=== PATIENT | female | born 1950 ===

== ENCOUNTER 2018-11-07 15:57 | Inpatient (IN) | payer MEDICARE, OTHER ==
[2018-11-07] MEDS ORDERED: Sodium Chloride 0.9% 1,000 ML IV SCH (16:15)
--- NOTE | 2018-11-07 16:23 | C.PDOC ---
History Of Present Illness 68 year old female presents to ED complaining of generalized weakness and fever since this morning, associated with vomiting and nausea. Otherwise patient denies any cough or nasal congestion. Time Seen by Provider: 11/07/18 16:06 Chief Complaint (Nursing): Fever History Per: Patient History/Exam Limitations: no limitations Onset/Duration Of Symptoms: Hrs Current Symptoms Are (Timing): Still Present Past Medical History Reviewed: Historical Data, Nursing Documentation, Vital Signs Vital Signs: Last Vital Signs Temp 102.1 F H 11/07/18 16:05 Pulse 120 H 11/07/18 16:05 Resp 33 H 11/07/18 16:05 BP Pulse Ox 100 11/07/18 16:05 - Medical History PMH: Asthma, HTN, Rheumatoid Arthritis Surgical History: No Surg Hx Family History: States: No Known Family Hx - Social History Hx Tobacco Use: No Hx Alcohol Use: No Hx Substance Use: No - Immunization History Hx Tetanus Toxoid Vaccination: No Hx Influenza Vaccination: Yes (2012) Review Of Systems Except As Marked, All Systems Reviewed And Found Negative. Constitutional: Positive for: Fever, Weakness ENT: Negative for: Nose Congestion Respiratory: Negative for: Cough Gastrointestinal: Positive for: Nausea, Vomiting Physical Exam - Physical Exam Appears: Non-toxic, In Acute Distress (moderate) Skin: Warm, Dry Head: Atraumatic, Normacephalic Eye(s): bilateral: Normal Inspection, PERRL, EOMI Oral Mucosa: Dry Neck: Supple Chest: Symmetrical Cardiovascular: Rhythm Regular (tachycardic), No Murmur Respiratory: Normal Breath Sounds, No Rales, No Rhonchi, No Wheezing Gastrointestinal/Abdominal: Tenderness (to left flank), No Guarding, No Rebound Extremity: Bilateral: Atraumatic, Normal Color And Temperature, Normal ROM Neurological/Psych: Oriented x3, Normal Speech ED Course And Treatment - Laboratory Results Result Diagrams: 11/07/18 17:06 11/07/18 17:06 ECG: Interpreted By Me, Viewed By Me ECG Rhythm: Sinus Tachycardia Interpretation Of ECG: LVH. QT normal. Rate From EC O2 Sat by Pulse Oximetry: 100 (RA) Pulse Ox Interpretation: Normal - Radiology CXR: Interpreted by Me, Viewed By Me CXR Interpretation: Yes: Heart Size (borderline enlargement), Other (Questionable small left pleural effusion) - Other Rad Chest X-Ray X-Ray: Read By Radiologist Interpretation: FINDINGS: LUNGS: No active pulmonary disease. PLEURA: No significant pleural effusion identified, no pneumothorax apparent. CARDIOVASCULAR: No aortic atherosclerotic calcification present. Normal cardiac size. No pulmonary vascular congestion. OSSEOUS STRUCTURES: Bilateral chronic rotator cuff insufficiency with superior subluxation of the humeral head. VISUALIZED UPPER ABDOMEN: Normal. OTHER FINDINGS: None. IMPRESSION: No active disease. Medical Decision Making Medical Decision Making: Plan: --EKG --VBG --CT Abd/Pel --Bloodwork --Chest x-ray --Urinalysis --Lactated Ringers 2L --IV fluids 1L --Tylenol 650 mg PO Disposition Discussed With Dr.: Noni Ayala Doctor Will See Patient In The: Hospital - Disposition Disposition: HOSPITALIZED Disposition Time: 18:35 Condition: GUARDED Forms: [facility] (Honduran) - Clinical Impression Clinical Impression: Sepsis - Scribe Statement The provider has reviewed the documentation as recorded by the Dimitriibdori Vargas Provider Attestation: All medical record entries made by the Marimar were at my direction and personally dictated by me. I have reviewed the chart and agree that the record accurately reflects my personal performance of the history, physical exam, medical decision making, and the department course for this patient. I have also personally directed, reviewed, and agree with the discharge instructions and disposition.
[2018-11-07 17:13] LABS: BASO % 0.1 % (0.0-2.0); HEMOGLOBIN 11.8 g/dL (11.0-16.0); LYMPH # 0.2 K/uL (1.0-4.3); LYMPH % 1.9 % (20.0-40.0); MEAN CELL VOLUME 76.8 fL (81.0-99.0); MEAN CORPUSCULAR HGB CONC 32.5 g/dL (33.0-37.0); MONO # 0.3 K/uL (0.0-0.8); MONO % 2.6 % (0.0-10.0); NEUT # 11.9 K/uL (1.8-7.0); NEUT % 95.4 % (50.0-75.0); PLATELET COUNT 255 K/uL (130-400); RBC 4.71 Mil/uL (3.80-5.20); RED CELL DISTRIBUTION WIDTH 16.7 % (11.5-14.5); WHITE BLOOD COUNT 12.5 K/uL (4.8-10.8)
[2018-11-07] MEDS ORDERED: Lactated Ringer's 2,000 ML ONE (17:16)
[2018-11-07 17:17] LABS: VENOUS BLOOD GAS BASE EXCESS 0.3 mmol/L (0.0-2.0); VENOUS BLOOD GAS PCO2 33 mmHg (40-60); VENOUS BLOOD GAS PO2 32 mm/Hg (30-55); VENOUS BLOOD PH 7.46 (7.32-7.43)
[2018-11-07 17:17] LABS: INR 1.2; PROTHROMBIN TIME 13.5 SECONDS (9.7-12.2)
[2018-11-07 17:26] LABS: ALB/GLOB RATIO 0.8 (1.0-2.1); ALBUMIN 3.8 g/dL (3.5-5.0); ALT/SGPT < 6 U/L (9-52); AST/SGOT 43 U/L (14-36); BLOOD UREA NITROGEN 11 mg/dL (7-17); GFR NON-AFRICAN AMERICAN > 60
--- NOTE | 2018-11-07 17:27 | RAD ---
Date of service: 11/07/2018 HISTORY: Sepsis Patient COMPARISON: 01/08/2018 FINDINGS: LUNGS: No active pulmonary disease. PLEURA: No significant pleural effusion identified, no pneumothorax apparent. CARDIOVASCULAR: No aortic atherosclerotic calcification present. Normal cardiac size. No pulmonary vascular congestion. OSSEOUS STRUCTURES: Bilateral chronic rotator cuff insufficiency with superior subluxation of the humeral head. VISUALIZED UPPER ABDOMEN: Normal. OTHER FINDINGS: None. IMPRESSION: No active disease.
[2018-11-07 18:03] LABS: SQUAMOUS EPITHIAL 9 /hpf (0-5); URINE BACTERIA MANY (<OCC); URINE BILIRUBIN NEGATIVE (NEGATIVE); URINE BLOOD NEGATIVE (NEGATIVE); URINE CLARITY Hazy (Clear); URINE COLOR Amber (YELLOW); URINE GLUCOSE (UA) NORMAL (Normal); URINE LEUKOCYTE ESTERASE NEG Leu/uL (Negative); URINE PROTEIN 1+ mg/dL (NEGATIVE); URINE UROBILINOGEN NORMAL mg/dL (0.2-1.0)
[2018-11-07 18:13] LABS: LYMPHOCYTE 3 % (20-40); MONOCYTE 2 % (0-10); NEUTROPHIL 95 % (50-75); PLATELET ESTIMATE NORMAL (NORMAL); TOTAL CELLS COUNTED 100
[2018-11-07] MEDS ORDERED: Piperacillin/Tazobact 3.375 gm 100 ML IVPB ONE (18:15)
[2018-11-07] MEDS: Piperacillin/Tazobact 3.375 GM in Sodium Chloride 100 ML IVPB SCH (18:26)
[2018-11-07] MEDS ORDERED: Magnesium Sulfate 1 gm in D5W 1 GM/100 ML BAG IVPB ONE (19:57)
[2018-11-07 20:01] LABS: VENOUS BLOOD GAS BASE EXCESS 0.4 mmol/L (0.0-2.0); VENOUS BLOOD GAS PCO2 30 mmHg (40-60); VENOUS BLOOD GAS PO2 55 mm/Hg (30-55); VENOUS BLOOD PH 7.49 (7.32-7.43)
[2018-11-07] MEDS ORDERED: Albuterol-Ipratrop 3 mg / 0.5 (3 ml) UD INH PRN (22:11)
--- NOTE | 2018-11-07 22:14 | CP.PCM.HP ---
<Hamida Dietz - Last Filed: 11/08/18 06:29> History of Present Illness - History of Present Illness History of Present Illness: CC diffuse body aches HPI: Patient is a 68 year old female with history of rheumatoid arthritis, HTN, RA, gastritis who presents for diffuse body aches. She states her symptoms started with abdominal pain that she describes as severe this morning associated with 3 episodes of vomiting, containing food contents. She denies any blood or dark material in her vomitus. She states she then called her son who brought her seltzer water for her abdominal discomfort which helped with her abdominal pain. She states she has had normal stools, brown and soft, denies blood or tarry stools. She states she has felt warm and has had chills all over all day today. She states her entire body hurts, including her head, and her left shoulder. She states she has not been able to eat anything today because of her vomiting. She denies falling at home, she denies dizziness, chest pain, shortness of breath, palpitations. She states she does not currently have any abdominal pain or back pain. She states she has pain all over her leg and arms. She denies burning with urination or frequency, or bad odor. PMD: Dr. Rodriguez, prior PMD Dr. Elias retired Rheum: Dr. Waters PMH: rheumatoid arthritis, HTN, gastritis, asthma (has had multiple hospitalization, never intubated) PSH: bilateral knee replacement, C section, kidney stones, nodule removal Home meds: Amlodipine 10mg, Vasotec 10mg, Methotrexate 6 tabs weekly, metoprolol 50mg daily, tramadol, vicodin Allergies: NKDA Social hx: Quit smoking 25 years ago, uses to smoke 3-4 cigarettes daily, denies history of alcohol or drug use. lives with son Family hx: Sister HIV, history of cancer, alcohol and drug use. Health care proxy Waldo Reese [phone] (son) Present on Admission - Present on Admission Any Indicators Present on Admission: No Review of Systems - Constitutional Constitutional: Chills, Fever, Headache - EENT Eyes: absent: Change in Vision Nose/Mouth/Throat: absent: Nasal Congestion, Sore Throat - Cardiovascular Cardiovascular: absent: Chest Pain, Dyspnea, Palpitations - Respiratory Respiratory: absent: Cough, Chest Congestion - Gastrointestinal Gastrointestinal: Abdominal Pain, Nausea, Vomiting. absent: Diarrhea - Genitourinary Genitourinary: absent: Change in Urinary Stream, Difficulty Urinating, Dysuria, Flank Pain - Musculoskeletal Musculoskeletal: Deformity (joint deformities secondary to RA). absent: Back Pain - Neurological Neurological: absent: Confusion, Convulsions, Disequilibrium, Dizziness, Syncope - Psychiatric Psychiatric: absent: Anxiety, Depression Past Patient History - Infectious Disease Hx of Infectious Diseases: None - Past Social History Smoking Status: Never Smoked - CARDIAC Hx Hypertension: Yes - PULMONARY Hx Asthma: Yes - MUSCULOSKELETAL/RHEUMATOLOGICAL Hx Rheumatoid Arthritis: Yes - PSYCHIATRIC Hx Substance Use: No - SURGICAL HISTORY Hx Hysterectomy: Yes Meds Allergies/Adverse Reactions: Allergies Allergy/AdvReac Type Severity Reaction Status Date / Time No Known Allergies Allergy Verified 11/07/18 16:11 Physical Exam - Constitutional Additional comments: Patient is moaning in pain but awake, alert and oriented x3 - Head Exam Head Exam: ATRAUMATIC, NORMOCEPHALIC - Eye Exam Eye Exam: EOMI, PERRL. absent: Conjunctival injection, Periorbital swelling, Scleral icterus Pupil Exam: NORMAL ACCOMODATION - ENT Exam ENT Exam: Mucous Membranes Dry, Normal Oropharynx - Neck Exam Neck exam: Positive for: Full Rom. Negative for: Lymphadenopathy, Thyromegaly - Respiratory Exam Respiratory Exam: Decreased Breath Sounds. absent: Rales, Rhonchi, Wheezes, Respiratory Distress, Stridor - Cardiovascular Exam Cardiovascular Exam: Tachycardia, +S1, +S2. absent: Gallop, Rubs, Systolic Murmur - GI/Abdominal Exam GI & Abdominal Exam: Normal Bowel Sounds, Soft. absent: Distended, Firm, Guarding, Hernia, Rigid, Tenderness - Extremities Exam Extremities exam: Positive for: normal capillary refill, pedal pulses present. Negative for: calf tenderness, pedal edema Additional comments: Marked deviation of fingers and toes secondary to rheumatoid arthritis Nodules present on fingers Vertical scars on knees bilaterally - Back Exam Back exam: CVA tenderness (R). absent: CVA tenderness (L), rash noted - Neurological Exam Neurological exam: Alert, CN II-XII Intact, Oriented x3 - Psychiatric Exam Psychiatric exam: Normal Affect, Normal Mood - Skin Skin Exam: Dry, Intact, Warm Results - Vital Signs Recent Vital Signs: Last Vital Signs Temp 101.1 F H 11/07/18 20:03 Pulse 112 H 11/07/18 20:03 Resp 33 H 11/07/18 16:05 BP 132/55 L 11/07/18 20:03 Pulse Ox 98 11/07/18 20:03 - Labs Result Diagrams: 11/07/18 17:06 11/07/18 17:06 Labs: Laboratory Results - last 24 hr 11/07/18 11/07/18 11/07/18 16:38 17:06 17:06 WBC 12.5 H D RBC 4.71 Hgb 11.8 Hct 36.2 MCV 76.8 L MCH 25.0 L MCHC 32.5 L RDW 16.7 H Plt Count 255 MPV 8.0 Neut % (Auto) 95.4 H Lymph % (Auto) 1.9 L [place] % (Auto) 2.6 Eos % (Auto) 0.0 Baso % (Auto) 0.1 Neut # (Auto) 11.9 H Lymph # (Auto) 0.2 L [place] # (Auto) 0.3 Eos # (Auto) 0.0 Baso # (Auto) 0.0 Neutrophils % (Manual) 95 H Lymphocytes % (Manual) 3 L Monocytes % (Manual) 2 Platelet Estimate Normal PT 13.5 H INR 1.2 APTT 31 pO2 VBG pH VBG pCO2 VBG HCO3 VBG Total CO2 VBG O2 Sat (Calc) VBG Base Excess VBG Potassium Glucose Lactate Sodium Potassium Chloride Carbon Dioxide Anion Gap BUN Creatinine Est GFR ( Amer) Est GFR (Non-Af Amer) Random Glucose Calcium Phosphorus Magnesium Total Bilirubin AST ALT Alkaline Phosphatase Troponin I Total Protein Albumin Globulin Albumin/Globulin Ratio Venous Blood Potassium Urine Color Urine Clarity Urine pH Ur Specific [place] Urine Protein Urine Glucose (UA) Urine Ketones Urine Blood Urine Nitrate Urine Bilirubin Urine Urobilinogen Ur Leukocyte Esterase Urine WBC (Auto) Urine RBC (Auto) Ur Squamous Epith Cells Urine Bacteria Influenza Typ A,B (EIA) Negative for flu a/b 11/07/18 11/07/18 11/07/18 17:06 17:11 17:49 WBC RBC Hgb Hct MCV MCH MCHC RDW Plt Count MPV Neut % (Auto) Lymph % (Auto) [place] % (Auto) Eos % (Auto) Baso % (Auto) Neut # (Auto) Lymph # (Auto) [place] # (Auto) Eos # (Auto) Baso # (Auto) Neutrophils % (Manual) Lymphocytes % (Manual) Monocytes % (Manual) Platelet Estimate PT INR APTT pO2 32 VBG pH 7.46 H VBG pCO2 33 L VBG HCO3 24.3 VBG Total CO2 24.5 VBG O2 Sat (Calc) 68.3 H VBG Base Excess 0.3 VBG Potassium 5.1 Glucose 113 H Lactate 3.7 H Sodium 134 133.0 Potassium 5.3 H Chloride 103 104.0 Carbon Dioxide 21 L Anion Gap 16 BUN 11 Creatinine 0.6 L Est GFR ( Amer) > 60 Est GFR (Non-Af Amer) > 60 Random Glucose 119 H Calcium 9.0 Phosphorus 1.8 L Magnesium 1.4 L Total Bilirubin 1.5 H AST 43 H ALT < 6 L D Alkaline Phosphatase 74 Troponin I 0.0340 Total Protein 8.3 Albumin 3.8 Globulin 4.5 H Albumin/Globulin Ratio 0.8 L Venous Blood Potassium 5.1 Urine Color [place] Urine Clarity Hazy Urine pH 6.0 Ur Specific [place] 1.020 Urine Protein 1+ H Urine Glucose (UA) Normal Urine Ketones Negative Urine Blood Negative Urine Nitrate Negative Urine Bilirubin Negative Urine Urobilinogen Normal Ur Leukocyte Esterase Neg Urine WBC (Auto) 30 H Urine RBC (Auto) 6 H Ur Squamous Epith Cells 9 H Urine Bacteria Many H Influenza Typ A,B (EIA) 11/07/18 19:59 WBC RBC Hgb Hct MCV MCH MCHC RDW Plt Count MPV Neut % (Auto) Lymph % (Auto) [place] % (Auto) Eos % (Auto) Baso % (Auto) Neut # (Auto) Lymph # (Auto) [place] # (Auto) Eos # (Auto) Baso # (Auto) Neutrophils % (Manual) Lymphocytes % (Manual) Monocytes % (Manual) Platelet Estimate PT INR APTT pO2 55 VBG pH 7.49 H VBG pCO2 30 L VBG HCO3 25.1 VBG Total CO2 23.8 VBG O2 Sat (Calc) 93.9 H VBG Base Excess 0.4 VBG Potassium 3.4 L Glucose 112 H Lactate 1.9 Sodium 135.0 Potassium Chloride 107.0 Carbon Dioxide Anion Gap BUN Creatinine Est GFR ( Amer) Est GFR (Non-Af Amer) Random Glucose Calcium Phosphorus Magnesium Total Bilirubin AST ALT Alkaline Phosphatase Troponin I Total Protein Albumin Globulin Albumin/Globulin Ratio Venous Blood Potassium 3.4 L Urine Color Urine Clarity Urine pH Ur Specific [place] Urine Protein Urine Glucose (UA) Urine Ketones Urine Blood Urine Nitrate Urine Bilirubin Urine Urobilinogen Ur Leukocyte Esterase Urine WBC (Auto) Urine RBC (Auto) Ur Squamous Epith Cells Urine Bacteria Influenza Typ A,B (EIA) Assessment & Plan - Assessment and Plan (Free Text) Assessment: 68 year old female with history of rheumatoid arthritis, HTN, gastritis and asthma who presents for diffuse body aches, fever. Code sepsis called. Plan: Code sepsis UTI Febrile to 102.1, HR 120 Initial lactate 3.7, repeat lactate 1.9, 3rd lactate 0.9 White count 12.5 with left shift Tylenol 650mg Q6 for fever, pain NS IV fluids at 100cc/hr Zosyn 3.375g IV Q6 UA: many bacteria. 1+ protein Flu negative f/u procal f/u blood cultures, urine cultures CXR: no acute disease Abd/pelvis CT without contrast: gallstone, small 3-4mm non obstructing left renal stone. 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 History of Rheumatoid arthritis Takes Enbrel weekly, last took on 11/06/18 methotrexate dose unconfirmed, start after confirm with pharmacy. Needs to confirm pain meds with pharmacy - Tramadol, Vicodin History of Asthma As per patient has had multiple hospitalization, never intubated Duonebs Q6 PRN Currently oxygenating well on RA Only uses albuterol as needed at home, last use 5 months ago as per patient Hypokalemia KCL 40meq IV x1 Hypomagnesemia Mag sulfate x1 given PPX: SCDs, Lovenox Pepcid Case discussed with Dr. Sol Dietz, PGY1 <Tawanda Horton - Last Filed: 11/08/18 06:54> Results - Vital Signs Recent Vital Signs: Last Vital Signs Temp 98.5 F 11/08/18 00:35 Pulse 90 11/08/18 00:35 Resp 20 11/08/18 00:35 BP 130/80 11/08/18 00:35 Pulse Ox 99 11/08/18 00:35 - Labs Result Diagrams: 11/07/18 17:06 11/07/18 17:06 Labs: Laboratory Results - last 24 hr 11/07/18 11/07/18 11/07/18 16:38 17:06 17:06 WBC 12.5 H D RBC 4.71 Hgb 11.8 Hct 36.2 MCV 76.8 L MCH 25.0 L MCHC 32.5 L RDW 16.7 H Plt Count 255 MPV 8.0 Neut % (Auto) 95.4 H Lymph % (Auto) 1.9 L [place] % (Auto) 2.6 Eos % (Auto) 0.0 Baso % (Auto) 0.1 Neut # (Auto) 11.9 H Lymph # (Auto) 0.2 L [place] # (Auto) 0.3 Eos # (Auto) 0.0 Baso # (Auto) 0.0 Neutrophils % (Manual) 95 H Lymphocytes % (Manual) 3 L Monocytes % (Manual) 2 Platelet Estimate Normal PT 13.5 H INR 1.2 APTT 31 pO2 VBG pH VBG pCO2 VBG HCO3 VBG Total CO2 VBG O2 Sat (Calc) VBG Base Excess VBG Potassium Glucose Lactate Sodium Potassium Chloride Carbon Dioxide Anion Gap BUN Creatinine Est GFR ( Amer) Est GFR (Non-Af Amer) POC Glucose (mg/dL) Random Glucose Calcium Phosphorus Magnesium Total Bilirubin AST ALT Alkaline Phosphatase Troponin I Total Protein Albumin Globulin Albumin/Globulin Ratio Venous Blood Potassium Urine Color Urine Clarity Urine pH Ur Specific [place] Urine Protein Urine Glucose (UA) Urine Ketones Urine Blood Urine Nitrate Urine Bilirubin Urine Urobilinogen Ur Leukocyte Esterase Urine WBC (Auto) Urine RBC (Auto) Ur Squamous Epith Cells Urine Bacteria Influenza Typ A,B (EIA) Negative for flu a/b 11/07/18 11/07/18 11/07/18 17:06 17:11 17:49 WBC RBC Hgb Hct MCV MCH MCHC RDW Plt Count MPV Neut % (Auto) Lymph % (Auto) [place] % (Auto) Eos % (Auto) Baso % (Auto) Neut # (Auto) Lymph # (Auto) [place] # (Auto) Eos # (Auto) Baso # (Auto) Neutrophils % (Manual) Lymphocytes % (Manual) Monocytes % (Manual) Platelet Estimate PT INR APTT pO2 32 VBG pH 7.46 H VBG pCO2 33 L VBG HCO3 24.3 VBG Total CO2 24.5 VBG O2 Sat (Calc) 68.3 H VBG Base Excess 0.3 VBG Potassium 5.1 Glucose 113 H Lactate 3.7 H Sodium 134 133.0 Potassium 5.3 H Chloride 103 104.0 Carbon Dioxide 21 L Anion Gap 16 BUN 11 Creatinine 0.6 L Est GFR ( Amer) > 60 Est GFR (Non-Af Amer) > 60 POC Glucose (mg/dL) Random Glucose 119 H Calcium 9.0 Phosphorus 1.8 L Magnesium 1.4 L Total Bilirubin 1.5 H AST 43 H ALT < 6 L D Alkaline Phosphatase 74 Troponin I 0.0340 Total Protein 8.3 Albumin 3.8 Globulin 4.5 H Albumin/Globulin Ratio 0.8 L Venous Blood Potassium 5.1 Urine Color [place] Urine Clarity Hazy Urine pH 6.0 Ur Specific [place] 1.020 Urine Protein 1+ H Urine Glucose (UA) Normal Urine Ketones Negative Urine Blood Negative Urine Nitrate Negative Urine Bilirubin Negative Urine Urobilinogen Normal Ur Leukocyte Esterase Neg Urine WBC (Auto) 30 H Urine RBC (Auto) 6 H Ur Squamous Epith Cells 9 H Urine Bacteria Many H Influenza Typ A,B (EIA) 11/07/18 11/07/18 11/08/18 19:59 22:48 06:17 WBC RBC Hgb Hct MCV MCH MCHC RDW Plt Count MPV Neut % (Auto) Lymph % (Auto) [place] % (Auto) Eos % (Auto) Baso % (Auto) Neut # (Auto) Lymph # (Auto) [place] # (Auto) Eos # (Auto) Baso # (Auto) Neutrophils % (Manual) Lymphocytes % (Manual) Monocytes % (Manual) Platelet Estimate PT INR APTT pO2 55 58 H VBG pH 7.49 H 7.46 H VBG pCO2 30 L 44 VBG HCO3 25.1 29.9 VBG Total CO2 23.8 32.7 H VBG O2 Sat (Calc) 93.9 H 95.1 H VBG Base Excess 0.4 6.6 H VBG Potassium 3.4 L 4.0 Glucose 112 H 113 H Lactate 1.9 0.9 Sodium 135.0 149.0 H Potassium Chloride 107.0 116.0 H Carbon Dioxide Anion Gap BUN Creatinine Est GFR ( Amer) Est GFR (Non-Af Amer) POC Glucose (mg/dL) 106 Random Glucose Calcium Phosphorus Magnesium Total Bilirubin AST ALT Alkaline Phosphatase Troponin I Total Protein Albumin Globulin Albumin/Globulin Ratio Venous Blood Potassium 3.4 L 4.0 Urine Color Urine Clarity Urine pH Ur Specific [place] Urine Protein Urine Glucose (UA) Urine Ketones Urine Blood Urine Nitrate Urine Bilirubin Urine Urobilinogen Ur Leukocyte Esterase Urine WBC (Auto) Urine RBC (Auto) Ur Squamous Epith Cells Urine Bacteria Influenza Typ A,B (EIA) Assessment & Plan - Date & Time Date: 11/08/18 (I have seen and examined the patient. I agree with the findings and plan of care as documented by Dr. Dietz. Patient with sepsis likely with UTI has source. Zosyn for now. Lactate elevated. Hemodynamically stable. Will monitor her closely. Check blood and urine cultures. History of rheumato id arthritis. On Enbrel. Consider discontinuing if sepsis worsens. History of hypertension. Continue home meds. Monitor for acute changes.) Time: 06:52 Attending/Attestation - Attestation I have personally seen and examined this patient.: Yes I have fully participated in the care of the patient.: Yes I have reviewed all pertinent clinical information: Yes
[2018-11-07] MEDS: Sodium Chloride 0.9% 1,000 ML IV SCH (22:48)
[2018-11-07 22:52] LABS: VENOUS BLOOD GAS BASE EXCESS 6.6 mmol/L (0.0-2.0); VENOUS BLOOD GAS PCO2 44 mmHg (40-60); VENOUS BLOOD GAS PO2 58 mm/Hg (30-55); VENOUS BLOOD PH 7.46 (7.32-7.43)
[2018-11-07] MEDS ORDERED: Potassium Chloride 20 mEq ER Tab PO ONE (23:00)
[2018-11-08] MEDS ORDERED: Hydrocodone/Acetaminophen 5 mg /300 mg Tab PO ONE (00:45)
[2018-11-08] MEDS: Piperacillin/Tazobact 3.375 GM in Sodium Chloride 100 ML IVPB SCH ×4 (01:00→17:03)
--- NOTE | 2018-11-08 07:09 | CP.PCM.PN ---
Subjective - Date & Time of Evaluation Date of Evaluation: 11/08/18 Time of Evaluation: 07:08 - Subjective Subjective: Progress note for Dr Ayala service Patient is seen and examined at bedside. Patient complaining of pain in both his lower extremities. Patient states getting cramps from her left leg and keeps leg hanging outside the bed. Patient reports pain in the back of her neck radiating to face. Patient denies abdominal pain, except for minor gas discomfort. Patient denies fever, chills, chest pain, shortness of breath, n/v/d/c or urinary s ymptoms. Objective - Vital Signs/Intake and Output Vital Signs (last 24 hours): Temp Pulse Resp BP Pulse Ox 98.5 F 90 20 130/80 99 11/08/18 00:35 11/08/18 00:35 11/08/18 00:35 11/08/18 00:35 11/08/18 00:35 Intake and Output: 11/08/18 11/08/18 06:59 18:59 Intake Total 1000 Balance 1000 - Medications Medications: Current Medications Acetaminophen (Tylenol 325mg Tab) 650 mg PO Q6 PRN PRN Reason: Fever >100.4 F Acetaminophen (Tylenol 325mg Tab) 650 mg PO Q6 PRN PRN Reason: Pain, moderate (4-7) Albuterol/Ipratropium (Duoneb 3 Mg/0.5 Mg (3 Ml) Ud) 3 ml INH RQ6 PRN PRN Reason: Shortness of Breath Amlodipine Besylate (Norvasc) 10 mg PO DAILY [facility] Enalapril Maleate (Vasotec) 10 mg PO DAILY [facility] Enoxaparin Sodium (Lovenox) 40 mg SC DAILY [facility] Famotidine (Pepcid) 20 mg PO DAILY [facility] Piperacillin Sod/Tazobactam (Sod 3.375 gm/ Sodium Chloride) 100 mls @ 200 mls/hr IVPB Q6H [facility]; Protocol Last Admin: 11/08/18 05:55 Dose: 200 mls/hr Sodium Chloride (Sodium Chloride 0.9%) 1,000 mls @ 100 mls/hr IV .Q10H [facility] Last Admin: 11/07/18 22:48 Dose: 100 mls/hr - Labs Labs: 11/07/18 17:06 11/07/18 17:06 PT 13.5 SECONDS (9.7-12.2) H 11/07/18 17:06 INR 1.2 11/07/18 17:06 APTT 31 SECONDS (21-34) 11/07/18 17:06 - Constitutional Appears: Non-toxic, No Acute Distress - Head Exam Head Exam: ATRAUMATIC, NORMAL INSPECTION, NORMOCEPHALIC - Eye Exam Eye Exam: EOMI, Normal appearance - ENT Exam ENT Exam: Mucous Membranes Moist, Normal Exam - Neck Exam Neck Exam: Full ROM, Normal Inspection - Respiratory Exam Respiratory Exam: Clear to Ausculation Bilateral, NORMAL BREATHING PATTERN. absent: Rales, Rhonchi, Wheezes - Cardiovascular Exam Cardiovascular Exam: REGULAR RHYTHM, +S1, +S2. absent: Tachycardia - GI/Abdominal Exam GI & Abdominal Exam: Soft, Normal Bowel Sounds. absent: Distended, Tenderness, Rebound - Extremities Exam Additional comments: bilateral toes and fingers in hands noted to be deviated - Back Exam Back Exam: NORMAL INSPECTION - Neurological Exam Neurological Exam: Alert, Awake, Oriented x3 - Psychiatric Exam Psychiatric exam: Normal Affect, Normal Mood - Skin Skin Exam: Dry, Intact, Normal Color, Warm Assessment and Plan - Assessment and Plan (Free Text) Plan: Code sepsis UTI vs bacteremia vs cellulitis (from enbrel injections) abdominal pain resolved at this time Febrile to 102.1, HR 120 -- Now 98.4, HR 96 Trending down lactate - Initial lactate 3.7, repeat lactate 1.9, 3rd lactate 0.9 White count 12.5 with left shift - 11/08 WBC 17.0 UA: many bacteria. 1+ protein Flu negative f/u procal f/u blood cultures, urine cultures CXR: no acute disease Abd/pelvis CT without contrast: gallstone, small 3-4mm non obstructing left renal stone. atherosclerotic changes with mild aneurysmal dilatation of mid abdominal aorta (2.5cm) Meds: Zosyn 3.375g IV Q6 Vanco 1gm IVPB Q12 Tamiflu 1 cap BID Tylenol 650mg Q6 for fever, pain NS IV fluids at 100cc/hr History of HTN cont Norvasc 10mg PO cont Vasotec 10mg PO cont Metroprolol 50mg PO BID monitor BP. History of Rheumatoid arthritis Takes Enbrel weekly, last took on 11/06/18 methotrexate 2.5mg x 6 tablets once a week - hold Folic acid 1mg once a day Iron panel - Iron, retic, ferritin, TIBC, iron sat - f/u B12, folate - f/u As per pharmacy, patient does not take any other medication History of Asthma As per patient has had multiple hospitalization, never intubated Duonebs Q6 PRN Currently oxygenating well on RA Only uses albuterol as needed at home, last use 5 months ago as per patient Hyperglycemia - 143 on POC glucose this am - check HbA1C - reactive, due to infection Hypokalemia, resolved - On VB.4 - K-dur 40 meq given on admission - 11/08: 4.2 Hypomagnesemia, resolved On admission: Mg 1.4 Mag sulfate x1 given 11/08: 1.9 PPX: SCDs, Lovenox Pepcid HHD Plan discussed with Dr Jamie Hayden, PGY-1
[2018-11-08 08:33] LABS: BASO % 0.2 % (0.0-2.0); EOS % 0.1 % (0.0-4.0); LYMPH # 0.6 K/uL (1.0-4.3); LYMPH % 3.7 % (20.0-40.0); MEAN CELL VOLUME 76.8 fL (81.0-99.0); MEAN CORPUSCULAR HEMOGLOBIN 24.3 pg (27.0-31.0); MEAN CORPUSCULAR HGB CONC 31.6 g/dL (33.0-37.0); MEAN PLATELET VOLUME 7.9 fL (7.2-11.7); MONO # 0.8 K/uL (0.0-0.8); MONO % 4.4 % (0.0-10.0); NEUT # 15.6 K/uL (1.8-7.0); NEUT % 91.6 % (50.0-75.0); PLATELET COUNT 228 K/uL (130-400); RBC 4.02 Mil/uL (3.80-5.20)
[2018-11-08 08:41] LABS: ALB/GLOB RATIO 0.8 (1.0-2.1); ALBUMIN 2.8 g/dL (3.5-5.0); ALT/SGPT 14 U/L (9-52); AST/SGOT 20 U/L (14-36); BLOOD UREA NITROGEN 15 mg/dL (7-17); CALCIUM 8.2 mg/dl (8.6-10.4); GFR NON-AFRICAN AMERICAN > 60
[2018-11-08 08:51] LABS: HEMOGLOBIN 9.8 g/dL (11.0-16.0)
--- NOTE | 2018-11-08 08:52 | PCM.SEPTIC ---
Sepsis Progress Note - Reassessment Type Date of Evaluation: 11/07/18 Time of Evaluation: 23:45 Reassessment Type: Non-invasive reassessment - Non Invasive Reassessment Were the most recent vital sign reviewed: Yes Vital Sign (Latest): Temp Pulse Resp BP Pulse Ox 98.4 F 92 H 20 159/83 H 97 11/08/18 07:33 11/08/18 08:12 11/08/18 07:33 11/08/18 07:33 11/08/18 07:33 Cardiovascular: Yes: Tachycardia Respiratory: Yes: Decreased Breath Sounds, Other (Not in respiratory distress, saturating well on RA) Capillary Refill: Normal (Less than 2 sec) Pulses: Normal Radial, Normal Dorsalis Pedis, Normal Posterior Tibialis Skin: Warm, Dry - Invasive Reassessment (complete 2 of 4) Was a Central Venous Pressure Measurement obtained within 6 Hours after the presentation of septic shock: No Was a central venous oxygen measurement obtained within 6 hours after the presentation of septic shock: No Was a bedside cardiovascular ultrasound performed within 6 hours after the presentation of septic shock: No Was a passive leg raise performed or was a fluid challenge performed within 6 hrs of the initial fluid bolus: No Passive Leg Raise Result: Not Applicable
--- NOTE | 2018-11-08 09:40 | CT ---
Date of service: 11/07/2018 PROCEDURE: CT Abdomen and Pelvis without intravenous contrast HISTORY: L. flank pain COMPARISON: None. TECHNIQUE: Technique. Contrast dose: Radiation dose: Total exam DLP = 1002.08 mGy-cm. This CT exam was performed using one or more of the following dose reduction techniques: Automated exposure control, adjustment of the mA and/or kV according to patient size, and/or use of iterative reconstruction technique. FINDINGS: LOWER THORAX: Unremarkable. LIVER: Unremarkable. No gross lesion or ductal dilatation. GALLBLADDER AND BILE DUCTS: Cholelithiasis. PANCREAS: Unremarkable. No gross lesion or ductal dilatation. SPLEEN: Unremarkable. ADRENALS: Unremarkable. No mass. KIDNEYS AND URETERS: Punctate 3 millimeter calculus in the left mid kidney. No hydronephrosis. No solid mass. VASCULATURE: Unremarkable. No aortic aneurysm. Aortic calcifications. BOWEL: Unremarkable. No obstruction. No gross mural thickening. APPENDIX: Unremarkable. Normal appendix. PERITONEUM: Unremarkable. No free fluid. No free air. LYMPH NODES: Unremarkable. No enlarged lymph nodes. BLADDER: Unremarkable. REPRODUCTIVE: Unremarkable. BONES: No acute fracture. OTHER FINDINGS: None. IMPRESSION: Gallstones. Left renal calculus.
[2018-11-08 09:59] LABS: ANISOCYTOSIS SLIGHT; BANDS 4 % (0-2); HYPOCHROMIC SLIGHT; LYMPHOCYTE 3 % (20-40); MONOCYTE 3 % (0-10); NEUTROPHIL 90 % (50-75); PLATELET ESTIMATE NORMAL (NORMAL); POIKILOCYTOSIS SLIGHT; TARGET CELLS SLIGHT; TOTAL CELLS COUNTED 100
[2018-11-08] MEDS ORDERED: Lactobacillus Acidophilus 500 MU Cap PO SCH (10:00)
[2018-11-08] MEDS: Enoxaparin 40 mg Syringe SC SCH (10:01)
[2018-11-08] MEDS: Sodium Chloride 0.9% 1,000 ML IV SCH ×3 (10:01→21:12)
[2018-11-08 17:25] LABS: IRON 17 ug/dL (37-170)
[2018-11-08 17:34] LABS: % IRON SATURATION 5 (20-55); TOTAL IRON BINDING CAPACITY 312 ug/dL (250-450)
[2018-11-08 18:05] LABS: FERRITIN 37.1 ng/mL
[2018-11-08 18:35] LABS: FOLATE 19.2 ng/mL
--- NOTE | 2018-11-08 21:59 | CP.PCM.CON ---
History of Present Illness - History of Present Illness History of Present Illness: dictated Past Patient History - Infectious Disease Hx of Infectious Diseases: None - Past Medical History & Family History Past Medical History?: Yes - Past Social History Smoking Status: Never Smoked - CARDIAC Hx Hypertension: Yes - PULMONARY Hx Asthma: Yes - NEUROLOGICAL Hx Neurological Disorder: No - HEENT Hx HEENT Problems: No - RENAL Hx Chronic Kidney Disease: No - ENDOCRINE/METABOLIC Hx Endocrine Disorders: No - HEMATOLOGICAL/ONCOLOGICAL Hx Blood Disorders: No - INTEGUMENTARY Hx Dermatological Problems: No - MUSCULOSKELETAL/RHEUMATOLOGICAL Hx Rheumatoid Arthritis: Yes - GASTROINTESTINAL Hx Gastrointestinal Disorders: No - GENITOURINARY/GYNECOLOGICAL Hx Genitourinary Disorders: No - PSYCHIATRIC Hx Substance Use: No - SURGICAL HISTORY Hx Hysterectomy: Yes Meds Allergies/Adverse Reactions: Allergies Allergy/AdvReac Type Severity Reaction Status Date / Time No Known Allergies Allergy Verified 11/07/18 16:11 - Medications Medications: Current Medications Acetaminophen (Tylenol 325mg Tab) 650 mg PO Q6 PRN PRN Reason: Fever >100.4 F Acetaminophen (Tylenol 325mg Tab) 650 mg PO Q6 PRN PRN Reason: Pain, moderate (4-7) Last Admin: 11/08/18 18:41 Dose: 650 mg Albuterol/Ipratropium (Duoneb 3 Mg/0.5 Mg (3 Ml) Ud) 3 ml INH RQ6 PRN PRN Reason: Shortness of Breath Amlodipine Besylate (Norvasc) 10 mg PO DAILY [facility] Last Admin: 11/08/18 10:01 Dose: 10 mg Enalapril Maleate (Vasotec) 10 mg PO DAILY [facility] Last Admin: 11/08/18 10:01 Dose: 10 mg Enoxaparin Sodium (Lovenox) 40 mg SC DAILY [facility] Last Admin: 11/08/18 10:01 Dose: 40 mg Famotidine (Pepcid) 20 mg PO DAILY [facility] Last Admin: 11/08/18 10:01 Dose: 20 mg Folic Acid (Folic Acid) 1 mg PO DAILY [facility] Piperacillin Sod/Tazobactam (Sod 3.375 gm/ Sodium Chloride) 100 mls @ 200 mls/hr IVPB Q6H [facility]; Protocol Last Admin: 11/08/18 17:03 Dose: 200 mls/hr Sodium Chloride (Sodium Chloride 0.9%) 1,000 mls @ 100 mls/hr IV .Q10H [facility] Last Admin: 11/08/18 21:12 Dose: 100 mls/hr Vancomycin HCl 1,000 mg/ (Sodium Chloride) 250 mls @ 166.6 mls/hr IVPB Q12H [facility]; Protocol Last Admin: 11/08/18 14:33 Dose: 166.6 mls/hr Metoprolol Tartrate (Lopressor) 50 mg PO BID [facility] Last Admin: 11/08/18 17:03 Dose: 50 mg Oseltamivir Phosphate (Tamiflu Cap) 75 mg PO Q12H [facility]; Protocol Stop: 11/13/18 13:01 Last Admin: 11/08/18 13:47 Dose: 75 mg Results - Vital Signs Recent Vital Signs: Last Vital Signs Temp 97.9 F 11/08/18 16:53 Pulse 101 H 11/08/18 17:58 Resp 20 11/08/18 16:53 BP 163/75 H 11/08/18 16:53 Pulse Ox 95 11/08/18 16:53 - Labs Result Diagrams: 11/08/18 08:10 11/08/18 08:10 Labs: Laboratory Results - last 24 hr 11/07/18 11/08/18 11/08/18 22:48 06:17 08:10 WBC RBC Hgb Hct MCV MCH MCHC RDW Plt Count MPV Neut % (Auto) Lymph % (Auto) Beaver % (Auto) Eos % (Auto) Baso % (Auto) Neut # (Auto) Lymph # (Auto) Beaver # (Auto) Eos # (Auto) Baso # (Auto) Neutrophils % (Manual) Band Neutrophils % Lymphocytes % (Manual) Monocytes % (Manual) Platelet Estimate Hypochromasia (manual) Poikilocytosis (manual Anisocytosis (manual) Target Cells Retic Count pO2 58 H VBG pH 7.46 H VBG pCO2 44 VBG HCO3 29.9 VBG Total CO2 32.7 H VBG O2 Sat (Calc) 95.1 H VBG Base Excess 6.6 H VBG Potassium 4.0 Sodium 149.0 H Chloride 116.0 H Glucose 113 H Lactate 0.9 Potassium Carbon Dioxide Anion Gap BUN Creatinine Est GFR ( Amer) Est GFR (Non-Af Amer) POC Glucose (mg/dL) 106 Random Glucose Hemoglobin A1c Calcium Phosphorus Magnesium Iron TIBC % Saturation Ferritin Total Bilirubin AST ALT Alkaline Phosphatase Total Protein Albumin Globulin Albumin/Globulin Ratio Vitamin B12 Folate Procalcitonin 8.64 H Venous Blood Potassium 4.0 Ur L.pneumophila Ag Mycoplasma pneumon IgM 11/08/18 11/08/18 11/08/18 08:10 08:10 11:08 WBC 17.0 H RBC 4.02 Hgb 9.8 L D Hct 30.9 L MCV 76.8 L MCH 24.3 L MCHC 31.6 L RDW 17.0 H Plt Count 228 MPV 7.9 Neut % (Auto) 91.6 H Lymph % (Auto) 3.7 L Beaver % (Auto) 4.4 Eos % (Auto) 0.1 Baso % (Auto) 0.2 Neut # (Auto) 15.6 H Lymph # (Auto) 0.6 L Beaver # (Auto) 0.8 Eos # (Auto) 0.0 Baso # (Auto) 0.0 Neutrophils % (Manual) 90 H Band Neutrophils % 4 H Lymphocytes % (Manual) 3 L Monocytes % (Manual) 3 Platelet Estimate Normal Hypochromasia (manual) Slight Poikilocytosis (manual Slight Anisocytosis (manual) Slight Target Cells Slight Retic Count pO2 VBG pH VBG pCO2 VBG HCO3 VBG Total CO2 VBG O2 Sat (Calc) VBG Base Excess VBG Potassium Sodium 135 Chloride 106 Glucose Lactate Potassium 4.2 Carbon Dioxide 22 Anion Gap 12 BUN 15 Creatinine 0.7 Est GFR ( Amer) > 60 Est GFR (Non-Af Amer) > 60 POC Glucose (mg/dL) 143 H Random Glucose 116 H Hemoglobin A1c Calcium 8.2 L Phosphorus 2.9 Magnesium 1.9 Iron TIBC % Saturation Ferritin Total Bilirubin 1.1 AST 20 ALT 14 Alkaline Phosphatase 57 Total Protein 6.5 Albumin 2.8 L D Globulin 3.7 Albumin/Globulin Ratio 0.8 L Vitamin B12 Folate Procalcitonin Venous Blood Potassium Ur L.pneumophila Ag Mycoplasma pneumon IgM 11/08/18 11/08/18 11/08/18 13:49 16:57 16:58 WBC RBC Hgb Hct MCV MCH MCHC RDW Plt Count MPV Neut % (Auto) Lymph % (Auto) Beaver % (Auto) Eos % (Auto) Baso % (Auto) Neut # (Auto) Lymph # (Auto) Beaver # (Auto) Eos # (Auto) Baso # (Auto) Neutrophils % (Manual) Band Neutrophils % Lymphocytes % (Manual) Monocytes % (Manual) Platelet Estimate Hypochromasia (manual) Poikilocytosis (manual Anisocytosis (manual) Target Cells Retic Count pO2 VBG pH VBG pCO2 VBG HCO3 VBG Total CO2 VBG O2 Sat (Calc) VBG Base Excess VBG Potassium Sodium Chloride Glucose Lactate Potassium Carbon Dioxide Anion Gap BUN Creatinine Est GFR ( Amer) Est GFR (Non-Af Amer) POC Glucose (mg/dL) Random Glucose Hemoglobin A1c Calcium Phosphorus Magnesium Iron 17 L TIBC 312 % Saturation 5 L Ferritin Total Bilirubin AST ALT Alkaline Phosphatase Total Protein Albumin Globulin Albumin/Globulin Ratio Vitamin B12 Folate Procalcitonin Venous Blood Potassium Ur L.pneumophila Ag Negative Mycoplasma pneumon IgM Negative 11/08/18 11/08/18 11/08/18 17:04 17:04 17:04 WBC RBC Hgb Hct MCV MCH MCHC RDW Plt Count MPV Neut % (Auto) Lymph % (Auto) Beaver % (Auto) Eos % (Auto) Baso % (Auto) Neut # (Auto) Lymph # (Auto) Beaver # (Auto) Eos # (Auto) Baso # (Auto) Neutrophils % (Manual) Band Neutrophils % Lymphocytes % (Manual) Monocytes % (Manual) Platelet Estimate Hypochromasia (manual) Poikilocytosis (manual Anisocytosis (manual) Target Cells Retic Count 1.1 pO2 VBG pH VBG pCO2 VBG HCO3 VBG Total CO2 VBG O2 Sat (Calc) VBG Base Excess VBG Potassium Sodium Chloride Glucose Lactate Potassium Carbon Dioxide Anion Gap BUN Creatinine Est GFR ( Amer) Est GFR (Non-Af Amer) POC Glucose (mg/dL) Random Glucose Hemoglobin A1c 5.4 Calcium Phosphorus Magnesium Iron TIBC % Saturation Ferritin 37.1 Total Bilirubin AST ALT Alkaline Phosphatase Total Protein Albumin Globulin Albumin/Globulin Ratio Vitamin B12 229 L Folate 19.2 Procalcitonin Venous Blood Potassium Ur L.pneumophila Ag Mycoplasma pneumon IgM 11/08/18 11/08/18 17:06 21:08 WBC RBC Hgb Hct MCV MCH MCHC RDW Plt Count MPV Neut % (Auto) Lymph % (Auto) Beaver % (Auto) Eos % (Auto) Baso % (Auto) Neut # (Auto) Lymph # (Auto) Beaver # (Auto) Eos # (Auto) Baso # (Auto) Neutrophils % (Manual) Band Neutrophils % Lymphocytes % (Manual) Monocytes % (Manual) Platelet Estimate Hypochromasia (manual) Poikilocytosis (manual Anisocytosis (manual) Target Cells Retic Count pO2 VBG pH VBG pCO2 VBG HCO3 VBG Total CO2 VBG O2 Sat (Calc) VBG Base Excess VBG Potassium Sodium Chloride Glucose Lactate Potassium Carbon Dioxide Anion Gap BUN Creatinine Est GFR ( Amer) Est GFR (Non-Af Amer) POC Glucose (mg/dL) 103 116 H Random Glucose Hemoglobin A1c Calcium Phosphorus Magnesium Iron TIBC % Saturation Ferritin Total Bilirubin AST ALT Alkaline Phosphatase Total Protein Albumin Globulin Albumin/Globulin Ratio Vitamin B12 Folate Procalcitonin Venous Blood Potassium Ur L.pneumophila Ag Mycoplasma pneumon IgM
[2018-11-09] MEDS: Piperacillin/Tazobact 3.375 GM in Sodium Chloride 100 ML IVPB SCH ×4 (00:32→17:44)
[2018-11-09 03:21] LABS: CK-MB 1.19 ng/mL (0.0-3.38)
[2018-11-09 03:43] LABS: ALB/GLOB RATIO 0.8 (1.0-2.1); ALBUMIN 2.8 g/dL (3.5-5.0); ALT/SGPT 13 U/L (9-52); AST/SGOT 13 U/L (14-36); BLOOD UREA NITROGEN 10 mg/dL (7-17); CALCIUM 8.4 mg/dl (8.6-10.4); GFR NON-AFRICAN AMERICAN > 60
--- NOTE | 2018-11-09 04:22 | CON ---
DATE: 11/08/2018 HISTORY OF PRESENT ILLNESS: The patient is a 68-year-old female. She has a history of hypertension, rheumatoid arthritis. She says she takes Enbrel and methotrexate for her rheumatoid arthritis. Enbrel is an injection which the son injects every week. She has been on it for more than many years, she says. She has been tested for TB before. She says that she is negative for that. She also has rheumatoid arthritis, gastritis, and comes in with diffuse body aches and was also having abdominal pain, which was severe in the morning with three episodes of vomiting containing food content. She denied any abdominal pain. She denied any blood in the vomitus. She was having abdominal discomfort and pain. She, however, has normal stools. She has no blood in it. She had chills today and entire body hurts including her shoulder. She complains of headache on one side. She denies any history of migraine and generalized body aches. She denies any falls. Denies dizziness. No chest pain. No shortness of breath. No sore throat. No difficulty swallowing. She does complain of some headaches. Denies any neck pain. Denies any back pain. She denies any burning in the urine or any other symptoms. PAST MEDICAL HISTORY: Significant for rheumatoid arthritis, hypertension, gastritis, and asthma. She has been intubated and has never been intubated, but has had many admissions for asthma. She has many deformities of her hand and joints, looks like burned out; rheumatoid arthritis, has bilateral knee replacements; ; kidney stone; nodule removal. MEDICATIONS: At home, amlodipine, Vasotec, methotrexate, Enbrel, metoprolol, tramadol, Vicodin. ALLERGIES: SHE IS NOT ALLERGIC TO ANY MEDICINE. SOCIAL HISTORY: She quit smoking 25 years ago, used to smoke three to four cigarettes a day. Denies any alcohol. Denies any drug abuse. Lives with her son. FAMILY HISTORY: Significant for sister having HIV, history of cancer, alcohol, and drug use. REVIEW OF SYSTEMS: CONSTITUTIONAL: She did complain of chills, fever, and headache. Denies any change in the vision. No nasal congestion. No sore throat. CARDIAC: No chest pain. No dyspnea. No palpitations. RESPIRATORY: No cough. No congestion. GASTROINTESTINAL: Did come in with abdominal pain, nausea, and vomiting. Denied any diarrhea. GENITOURINARY: Denies any urinary symptoms of urgency, frequency, flank pain, or hematuria. MUSCULOSKELETAL: Does have joint deformities secondary to rheumatoid arthritis. Denies any back pain. NEUROLOGICAL: Has no altered mental status, syncope, dizziness, confusion, or convulsions. PSYCHIATRIC: No psych history. PHYSICAL EXAMINATION: VITAL SIGNS: I find her temperature is 97.9, heart rate is 105, blood pressure 163/75, and respirations are 20. She is tachycardic. T-max was 101.1 when she was admitted, pulse rate of 112, respiratory rate was 33, blood pressure 132/55. HEENT: Head is atraumatic and normocephalic. Pupils are reacting to light. Eye movements are unremarkable. Throat is unremarkable. Tongue is moist. NECK: Supple. JVP is flat. LUNGS: Clear. No crackles or rales present. HEART: S1 and S2 are regular. No murmurs appreciated. ABDOMEN: Soft and nontender. No guarding. No rigidity present. EXTREMITIES: Have no edema, clubbing, or cyanosis. LABORATORY DATA: Clinical exam does not show much, but she came in with a white count of 17, hemoglobin 9.8, hematocrit 30.9, platelet count is 228. Neutrophils are 90, bands of 4, reticulocyte count is 1.1. Random sugar is 116, sodium 135, potassium 4.2, chloride 106, CO2 is 22, anion gap is 12, BUN is 15, creatinine 0.7. Her urine Legionella was negative, mycoplasma is negative, procalcitonin is 8.64, so definitely she has some infection going on, and she is immunocompromised as she is on Enbrel. Her blood cultures are negative so far. She had a chest x-ray and the chest x-ray shows no active disease. She also had a CAT scan of the abdomen and pelvis, which shows gallstones, left renal calculus. There is a punctate 3 calculus in the left mid kidney, no hydronephrosis, no solid mass. Her gallbladder has cholelithiasis liver enzymes. ASSESSMENT AND PLAN: At this time, this patient is admitted with sepsis. She is on vancomycin and Zosyn. Her liver function tests are unremarkable. Exact etiology of sepsis is unclear, but of course procalcitonin is up at 8.64. We will continue with the antibiotics, and we will follow. If she does not improve, I think we should also get a gastroenterology evaluation. Chest x-ray is negative. She has been started empirically on Tamiflu also and on vancomycin and Zosyn. We will continue the same management at this time, and we will follow with you. Susan Vivas MD
[2018-11-09 07:14] LABS: BASO % 0.3 % (0.0-2.0); EOS % 0.4 % (0.0-4.0); HEMOGLOBIN 9.2 g/dL (11.0-16.0); LYMPH # 0.7 K/uL (1.0-4.3); LYMPH % 6.6 % (20.0-40.0); MEAN CELL VOLUME 76.9 fL (81.0-99.0); MEAN CORPUSCULAR HEMOGLOBIN 24.9 pg (27.0-31.0); MEAN CORPUSCULAR HGB CONC 32.3 g/dL (33.0-37.0); MEAN PLATELET VOLUME 7.8 fL (7.2-11.7); MONO # 0.7 K/uL (0.0-0.8); MONO % 6.6 % (0.0-10.0); NEUT # 9.2 K/uL (1.8-7.0); NEUT % 86.1 % (50.0-75.0); PLATELET COUNT 215 K/uL (130-400); RBC 3.71 Mil/uL (3.80-5.20); RED CELL DISTRIBUTION WIDTH 17.2 % (11.5-14.5); WHITE BLOOD COUNT 10.7 K/uL (4.8-10.8)
--- NOTE | 2018-11-09 08:06 | CP.PCM.PN ---
Subjective - Date & Time of Evaluation Date of Evaluation: 11/09/18 Time of Evaluation: 11:00 - Subjective Subjective: Patient examined at bedside. No acute events overnight. Patient reports her diffuse kell pain is much improved. She denies nausea/vomiting since her last episodes of emesis Thursday. Patient reports normal formed BM this morning. Pts joint pain is well controlled, pt feeding self with no complaint. Denies fevers, chest pain, dysuria, change in urinary frequency. Objective - Vital Signs/Intake and Output Vital Signs (last 24 hours): Temp Pulse Resp BP Pulse Ox 98.3 F 92 H 20 148/86 97 11/09/18 02:34 11/09/18 02:34 11/09/18 02:34 11/09/18 02:34 11/09/18 02:34 Intake and Output: 11/09/18 11/09/18 06:59 18:59 Intake Total 900 Balance 900 - Medications Medications: Current Medications Acetaminophen (Tylenol 325mg Tab) 650 mg PO Q6 PRN PRN Reason: Fever >100.4 F Acetaminophen (Tylenol 325mg Tab) 650 mg PO Q6 PRN PRN Reason: Pain, moderate (4-7) Last Admin: 11/09/18 00:32 Dose: 650 mg Albuterol/Ipratropium (Duoneb 3 Mg/0.5 Mg (3 Ml) Ud) 3 ml INH RQ6 PRN PRN Reason: Shortness of Breath Amlodipine Besylate (Norvasc) 10 mg PO DAILY [facility] Last Admin: 11/08/18 10:01 Dose: 10 mg Enalapril Maleate (Vasotec) 10 mg PO DAILY [facility] Last Admin: 11/08/18 10:01 Dose: 10 mg Enoxaparin Sodium (Lovenox) 40 mg SC DAILY [facility] Last Admin: 11/08/18 10:01 Dose: 40 mg Famotidine (Pepcid) 20 mg PO DAILY [facility] Last Admin: 11/08/18 10:01 Dose: 20 mg Folic Acid (Folic Acid) 1 mg PO DAILY [facility] Piperacillin Sod/Tazobactam (Sod 3.375 gm/ Sodium Chloride) 100 mls @ 200 mls/hr IVPB Q6H [facility]; Protocol Last Admin: 11/09/18 05:51 Dose: 200 mls/hr Sodium Chloride (Sodium Chloride 0.9%) 1,000 mls @ 100 mls/hr IV .Q10H [facility] Last Admin: 11/08/18 21:12 Dose: 100 mls/hr Vancomycin HCl 1,000 mg/ (Sodium Chloride) 250 mls @ 166.6 mls/hr IVPB Q12H [facility]; Protocol Last Admin: 11/09/18 00:39 Dose: 166.6 mls/hr Metoprolol Tartrate (Lopressor) 50 mg PO BID [facility] Last Admin: 11/08/18 17:03 Dose: 50 mg Oseltamivir Phosphate (Tamiflu Cap) 75 mg PO Q12H [facility]; Protocol Stop: 11/13/18 13:01 Last Admin: 11/09/18 00:38 Dose: 75 mg - Labs Labs: 11/09/18 06:57 11/09/18 02:57 PT 13.5 SECONDS (9.7-12.2) H 11/07/18 17:06 INR 1.2 11/07/18 17:06 APTT 31 SECONDS (21-34) 11/07/18 17:06 - Additional Findings Additional findings: - Constitutional Additional comments: Patient is moaning in pain but awake, alert and oriented x3 - Head Exam Head Exam: ATRAUMATIC, NORMOCEPHALIC - Eye Exam Eye Exam: EOMI, PERRL. absent: Conjunctival injection, Periorbital swelling, Scleral icterus Pupil Exam: NORMAL ACCOMODATION - ENT Exam ENT Exam: Mucous Membranes Dry, Normal Oropharynx - Neck Exam Neck exam: Positive for: Full Rom. Negative for: Lymphadenopathy, Thyromegaly - Respiratory Exam Respiratory Exam: Decreased Breath Sounds. absent: Rales, Rhonchi, Wheezes, Respiratory Distress, Stridor - Cardiovascular Exam Cardiovascular Exam: Tachycardia, +S1, +S2. absent: Gallop, Rubs, Systolic Murmur - GI/Abdominal Exam GI & Abdominal Exam: Normal Bowel Sounds, Soft. absent: Distended, Firm, Guarding, Hernia, Rigid, Tenderness - Extremities Exam Extremities exam: Positive for: normal capillary refill, pedal pulses present. Negative for: calf tenderness, pedal edema Additional comments: Significant ulnar deviation B/L, UE/LE Nodular deformities on fingers. LLE: medial maleoulus erythematous - Back Exam Back exam: CVA tenderness (R). absent: CVA tenderness (L), rash noted - Neurological Exam Neurological exam: Alert, CN II-XII Intact, Oriented x3 - Psychiatric Exam Psychiatric exam: Normal Affect, Normal Mood - Skin Skin Exam: Dry, Intact, Warm Assessment and Plan - Assessment and Plan (Free Text) Plan: UTI Afebrile leukocytosis-WNL procal: 8.64 Urine cx: 50-100k, f/u repeat CT abd/pelvis: gallstones, no ductal dilitation or inflammatory changes Zosyn 3.375g IV Q6 Vanco 1gm IVPB Q12 Tamiflu 1 cap BID Tylenol 650mg Q6 for fever, pain NS @100/hr ID consult, Dr. Vivas HTN Norvasc 10mg PO Enalapril 10mg PO Metroprolol 50mg PO BID Rheumatoid arthritis Takes Enbrel weekly, last dose 11/06/18 methotrexate 2.5mg x 6 tablets once a week - hold Folic acid 1mg once a day Iron deficiency, replete s/p infection resolution R/O Left Foot Cellulitis/Osteo f/u left foor x-ray Asthma, chronic Duonebs Q6 PRN Electrolyte Abnormalities replete prn continue to monitor PPX: SCDs, Lovenox Pepcid HHD Discussed with Dr. Ayala -Ilene Luo, PGY-1
[2018-11-09] MEDS ORDERED: Potassium Chloride 20 mEq ER Tab PO ONE (10:00)
[2018-11-09] MEDS: Enoxaparin 40 mg Syringe SC SCH (10:10)
[2018-11-09 10:36] LABS: LYMPHOCYTE 8 % (20-40); MONOCYTE 5 % (0-10); NEUTROPHIL 87 % (50-75); PLATELET ESTIMATE NORMAL (NORMAL); TOTAL CELLS COUNTED 100
[2018-11-09 10:37] LABS: ANISOCYTOSIS SLIGHT
[2018-11-09 10:39] LABS: HYPOCHROMIC SLIGHT
[2018-11-09] MEDS: Sodium Chloride 0.9% 1,000 ML IV SCH (20:32)
[2018-11-10] MEDS: Piperacillin/Tazobact 3.375 GM in Sodium Chloride 100 ML IVPB SCH ×4 (00:24→17:22)
[2018-11-10 07:59] LABS: BASO % 0.6 % (0.0-2.0); EOS # 0.1 K/uL (0.0-0.7); HEMOGLOBIN 9.2 g/dL (11.0-16.0); LYMPH # 1.1 K/uL (1.0-4.3); LYMPH % 14.2 % (20.0-40.0); MEAN CELL VOLUME 78.2 fL (81.0-99.0); MEAN CORPUSCULAR HEMOGLOBIN 24.8 pg (27.0-31.0); MEAN CORPUSCULAR HGB CONC 31.7 g/dL (33.0-37.0); MEAN PLATELET VOLUME 8.1 fL (7.2-11.7); MONO # 0.6 K/uL (0.0-0.8); NEUT # 5.9 K/uL (1.8-7.0); NEUT % 76.2 % (50.0-75.0); RBC 3.71 Mil/uL (3.80-5.20); RED CELL DISTRIBUTION WIDTH 17.1 % (11.5-14.5); WHITE BLOOD COUNT 7.7 K/uL (4.8-10.8)
[2018-11-10 08:30] LABS: ALB/GLOB RATIO 0.7 (1.0-2.1); ALBUMIN 2.9 g/dL (3.5-5.0); ALT/SGPT 13 U/L (9-52); AST/SGOT 18 U/L (14-36); BLOOD UREA NITROGEN 7 mg/dL (7-17); CALCIUM 8.5 mg/dl (8.6-10.4); GFR NON-AFRICAN AMERICAN > 60
[2018-11-10] MEDS ORDERED: Potassium Chloride 20 mEq ER Tab PO ONE (09:17)
[2018-11-10] MEDS: Sodium Chloride 0.9% 1,000 ML IV SCH ×2 (10:15→19:38)
--- NOTE | 2018-11-10 10:40 | CP.PCM.PN ---
Subjective - Date & Time of Evaluation Date of Evaluation: 11/10/18 Time of Evaluation: 09:30 - Subjective Subjective: PGY-1 Medicine Progress Note for Dr. Hussein Agudelo Patient was seen and examined today at bedside in no acute distress. Nurse reports no overnight events. Patient has no acute complaints. As she is in a room be herself, she feels lonely and requests that her door stay open so she can see people in the hallway. She no longer feels feverish, but still has a slight headache. Denies chest pain, shortness of breath, n/v/c/d. Objective - Vital Signs/Intake and Output Vital Signs (last 24 hours): Temp Pulse Resp BP Pulse Ox 98.3 F 93 H 20 157/81 H 97 11/10/18 07:00 11/10/18 07:00 11/10/18 07:00 11/10/18 07:00 11/10/18 07:00 Intake and Output: 11/10/18 11/10/18 06:59 18:59 Intake Total 970 Balance 970 - Medications Medications: Current Medications Acetaminophen (Tylenol 325mg Tab) 650 mg PO Q6 PRN PRN Reason: Fever >100.4 F Last Admin: 11/09/18 21:40 Dose: 650 mg Acetaminophen (Tylenol 325mg Tab) 650 mg PO Q6 PRN PRN Reason: Pain, moderate (4-7) Last Admin: 11/09/18 00:32 Dose: 650 mg Albuterol/Ipratropium (Duoneb 3 Mg/0.5 Mg (3 Ml) Ud) 3 ml INH RQ6 PRN PRN Reason: Shortness of Breath Amlodipine Besylate (Norvasc) 10 mg PO DAILY [facility] Last Admin: 11/09/18 10:09 Dose: 10 mg Enalapril Maleate (Vasotec) 10 mg PO DAILY [facility] Last Admin: 11/09/18 10:10 Dose: 10 mg Enoxaparin Sodium (Lovenox) 40 mg SC DAILY [facility] Last Admin: 11/09/18 10:10 Dose: 40 mg Famotidine (Pepcid) 20 mg PO DAILY [facility] Last Admin: 11/09/18 10:09 Dose: 20 mg Folic Acid (Folic Acid) 1 mg PO DAILY [facility] Last Admin: 11/09/18 10:09 Dose: 1 mg Piperacillin Sod/Tazobactam (Sod 3.375 gm/ Sodium Chloride) 100 mls @ 200 mls/hr IVPB Q6H [facility]; Protocol Last Admin: 11/10/18 06:33 Dose: 200 mls/hr Sodium Chloride (Sodium Chloride 0.9%) 1,000 mls @ 100 mls/hr IV .Q10H [facility] Last Admin: 11/09/18 20:32 Dose: 100 mls/hr Metoprolol Tartrate (Lopressor) 50 mg PO BID [facility] Last Admin: 11/09/18 17:44 Dose: 50 mg - Labs Labs: 11/10/18 07:34 11/10/18 07:34 PT 13.5 SECONDS (9.7-12.2) H 11/07/18 17:06 INR 1.2 11/07/18 17:06 APTT 31 SECONDS (21-34) 11/07/18 17:06 - Constitutional Appears: No Acute Distress - Head Exam Head Exam: ATRAUMATIC, NORMOCEPHALIC - Eye Exam Eye Exam: EOMI, Normal appearance - ENT Exam ENT Exam: Mucous Membranes Dry - Respiratory Exam Respiratory Exam: Decreased Breath Sounds, Clear to Ausculation Bilateral, NORM AL BREATHING PATTERN. absent: Rales, Rhonchi, Wheezes - Cardiovascular Exam Cardiovascular Exam: Tachycardia, +S1, +S2 - GI/Abdominal Exam GI & Abdominal Exam: Soft, Normal Bowel Sounds. absent: Tenderness - Extremities Exam Extremities Exam: Normal Capillary Refill Additional comments: Significant ulnar deviation B/L, UE/LE Nodular deformities on fingers. LLE: medial maleoulus erythematous IV access in R arm - Back Exam Back Exam: absent: CVA tenderness (L), CVA tenderness (R) - Neurological Exam Neurological Exam: Alert, Awake, Oriented x3 - Psychiatric Exam Psychiatric exam: Normal Affect, Normal Mood - Skin Skin Exam: Dry, Normal Color, Warm Assessment and Plan - Assessment and Plan (Free Text) Plan: UTI - Afebrile, WBC max 17.0, since downtrending - CXR (11/07): no active disease - CT A/P w/o contrast (11/07): gallstones, left renal calculi - UA: 1+ protein, elevated WBC - Urine Cx contaminated. f/u repeat urine Cx - Vancomycin 1gm IVPB q12 (started 11/08) - Vanc Trough 11/10@noon - Zosyn 3.375gm IVPB q6 (started 11/07) - Tamiflu 75mg po bid (patient hasn't been taking) - Tylenol 650mg po q6 for fever, pain - NS@100 - ID consulted: Dr. Vivas - recs appreciated Hypertension - Norvasc 10mg PO daily - Enalapril 10mg PO daily - Metoprolol 50mg PO BID Rheumatoid arthritis Takes Enbrel weekly, last dose 11/06/18 methotrexate 2.5mg x 6 tablets once a week - hold Folic acid 1mg once a day Iron deficiency, replete s/p infection resolution r/o Left Foot Cellulitis/Osteo - XR L foot (11/10): Neuropathic Charcot foot, diffuse osteopenia, soft tissue swelling - continue to monitor physical findings Asthma, chronic - Duonebs Q6 PRN Electrolyte Abnormalities - replete prn - continue to monitor Anemia with Abnormal RBC - Iron studies: Fe 17 TIBC 312 %sat 5 Ferritin 37.1 - holding off on supplementing Fe for now in light of acute bacterial infection - per patient, last colonoscopy was with EGD by unknown GI about 2 years ago. Per patient, unremarkable with no instructions for follow up. Bilateral chronic rotator cuff insufficiency with superior subluxation - as seen on CXR - f/u ortho as outpatient PPX: SCDs, Lovenox Pepcid HHD d/w Dr. Hussein Miller PGY-1
[2018-11-10] MEDS: Enoxaparin 40 mg Syringe SC SCH (11:15)
--- NOTE | 2018-11-10 13:27 | RAD ---
PROCEDURE: Left Foot Radiographs. HISTORY: r/o cellulitis/osteo COMPARISON: Left foot radiographs performed 05/06/16 FINDINGS: Limited study due to overlap of digits/hammertoe deformity. Deformity of the distal 5th metatarsal with penciling cup appearance. Diffuse osseous demineralization limits evaluation for acute fracture lines. Neuropathic foot/Charcot joint. Soft tissue swelling. Dense vascular calcifications. IMPRESSION: Neuropathic foot/Charcot joint. Diffuse osteopenia. Soft tissue swelling. Please note that MRI without and with IV contrast most sensitive in detection of acute osteomyelitis.
[2018-11-10] MEDS: Vancomycin 1 gm/NS 200 ml 1 GM/200 ML BAG IVPB SCH (14:53)
[2018-11-10] MEDS ORDERED: Potassium Phosphate 15 MMOLE in Sodium Chloride 0.9% 250 ML IV ONE (15:30)
--- NOTE | 2018-11-10 19:40 | CARD ---
APPROVED REPORT Date of service: 11/09/2018 EKG Measurement Heart [id number] <Conclusion> Sinus rhythm with premature atrial complexes Otherwise normal ECG
--- NOTE | 2018-11-10 22:43 | CP.PCM.PN ---
Subjective - Date & Time of Evaluation Date of Evaluation: 11/10/18 Time of Evaluation: 13:30 - Subjective Subjective: dictated Objective - Vital Signs/Intake and Output Vital Signs (last 24 hours): Temp Pulse Resp BP Pulse Ox 98.4 F 77 18 137/67 98 11/10/18 15:00 11/10/18 21:40 11/10/18 15:00 11/10/18 15:00 11/10/18 15:00 Intake and Output: 11/10/18 11/11/18 18:59 06:59 Intake Total 800 1000 Balance 800 1000 - Medications Medications: Current Medications Acetaminophen (Tylenol 325mg Tab) 650 mg PO Q6 PRN PRN Reason: Fever >100.4 F Last Admin: 11/09/18 21:40 Dose: 650 mg Acetaminophen (Tylenol 325mg Tab) 650 mg PO Q6 PRN PRN Reason: Pain, moderate (4-7) Last Admin: 11/09/18 00:32 Dose: 650 mg Albuterol/Ipratropium (Duoneb 3 Mg/0.5 Mg (3 Ml) Ud) 3 ml INH RQ6 PRN PRN Reason: Shortness of Breath Amlodipine Besylate (Norvasc) 10 mg PO DAILY [facility] Last Admin: 11/10/18 11:15 Dose: 10 mg Enalapril Maleate (Vasotec) 10 mg PO DAILY [facility] Last Admin: 11/10/18 11:15 Dose: 10 mg Enoxaparin Sodium (Lovenox) 40 mg SC DAILY [facility] Last Admin: 11/10/18 11:15 Dose: 40 mg Famotidine (Pepcid) 20 mg PO DAILY [facility] Last Admin: 11/10/18 11:15 Dose: 20 mg Folic Acid (Folic Acid) 1 mg PO DAILY [facility] Last Admin: 11/10/18 11:15 Dose: 1 mg Piperacillin Sod/Tazobactam (Sod 3.375 gm/ Sodium Chloride) 100 mls @ 200 mls/hr IVPB Q6H [facility]; Protocol Last Admin: 11/10/18 17:22 Dose: 200 mls/hr Sodium Chloride (Sodium Chloride 0.9%) 1,000 mls @ 100 mls/hr IV .Q10H [facility] Last Admin: 11/10/18 19:38 Dose: Not Given Vancomycin/Sodium Chloride (Vancomycin 1 Gm/Ns 200 Ml) 1 gm in 200 mls @ 166.7 mls/hr IVPB Q12H [facility]; Protocol Stop: 11/15/18 13:01 Last Admin: 11/10/18 14:53 Dose: 166.7 mls/hr Metoprolol Tartrate (Lopressor) 50 mg PO BID [facility] Last Admin: 11/10/18 17:21 Dose: 50 mg - Labs Labs: 11/10/18 07:34 11/10/18 07:34 PT 13.5 SECONDS (9.7-12.2) H 11/07/18 17:06 INR 1.2 11/07/18 17:06 APTT 31 SECONDS (21-34) 11/07/18 17:06
[2018-11-10 23:46] VITALS: RESP 20
[2018-11-11] MEDS: Piperacillin/Tazobact 3.375 GM in Sodium Chloride 100 ML IVPB SCH ×2 (00:31→06:56)
[2018-11-11] MEDS: Vancomycin 1 gm/NS 200 ml 1 GM/200 ML BAG IVPB SCH (00:31)
--- NOTE | 2018-11-11 02:05 | PN ---
DATE: 11/10/2018 INFECTIOUS DISEASE FOLLOWUP SUBJECTIVE: The patient was seen today. She denied any distress. I told her if she has any kidney issues in the past, she said she has had five surgeries on her kidney for the stones, and she is feeling better. She said they were going to look into the cultures. She still had some headache. Denied any shortness of breath. No abdominal pain. No nausea, no vomiting. She is looking better. PHYSICAL EXAMINATION VITAL SIGNS: T-max is 98.3 today, pulse is 93, blood pressure 157/81, respirations are 20. GENERAL: She is awake and alert, able to give her complaints. HEENT: Head is atraumatic and normocephalic. NECK: Supple. LUNGS: Clear. HEART: S1 and S2 regular. No murmurs appreciated. ABDOMEN: Soft, nontender. No guarding, no rigidity present. EXTREMITIES: Remain without edema, but she has deformities of the fingers because of rheumatoid arthritis, but there is nothing new going on. She has some CVA tenderness on the left side and also on the right side. She had a CT scan which showed gallstones, also showed left renal calculi. She has a left renal stone, no other stone outside. Blood culture and urine culture . The patient is improving clinically, was admitted with sepsis. Cultures basically are all negative except urine which had multiple species, now repeat culture is negative. MEDICATION: She is on vancomycin and Zosyn. ASSESSMENT AND PLAN: She does have kidney stones, so she has a complicated urinary tract infection. To continue these medications at least 7-10 days so that she is treated for complicated urinary tract infection. She has rheumatoid arthritis. We will follow with you. She is also being treated for flu with medication she has done with at this time as there was some history of pneumonia, urinary tract infection and rheumatoid arthritis. We will follow. Susan Vivas MD
[2018-11-11 08:12] LABS: BASO # 0.1 K/uL (0.0-0.2); EOS # 0.1 K/uL (0.0-0.7); EOS % 2.2 % (0.0-4.0); HEMOGLOBIN 8.9 g/dL (11.0-16.0); LYMPH # 1.1 K/uL (1.0-4.3); LYMPH % 20.7 % (20.0-40.0); MEAN CELL VOLUME 77.1 fL (81.0-99.0); MEAN CORPUSCULAR HEMOGLOBIN 24.7 pg (27.0-31.0); MEAN PLATELET VOLUME 7.8 fL (7.2-11.7); MONO # 0.6 K/uL (0.0-0.8); MONO % 11.6 % (0.0-10.0); NEUT # 3.3 K/uL (1.8-7.0); NEUT % 64.5 % (50.0-75.0); RBC 3.6 Mil/uL (3.80-5.20); RED CELL DISTRIBUTION WIDTH 16.6 % (11.5-14.5); WHITE BLOOD COUNT 5.1 K/uL (4.8-10.8)
[2018-11-11 08:21] VITALS: TEMP 98.2; O2SAT 100
[2018-11-11 08:47] LABS: ALB/GLOB RATIO 0.8 (1.0-2.1); ALBUMIN 2.9 g/dL (3.5-5.0); ALT/SGPT 15 U/L (9-52); AST/SGOT 18 U/L (14-36); BLOOD UREA NITROGEN 7 mg/dL (7-17); CALCIUM 8.5 mg/dl (8.6-10.4); GFR NON-AFRICAN AMERICAN > 60
[2018-11-11] MEDS ORDERED: Potassium Chloride 20 mEq ER Tab PO ONE ×2 (09:07→10:15)
[2018-11-11] MEDS: Enoxaparin 40 mg Syringe SC SCH (10:08)
[2018-11-11 10:09] VITALS: BP 138/69
[2018-11-11 11:53] VITALS: PULSE 82
--- NOTE | 2018-11-11 12:21 | CP.PCM.PCO ---
Physician Communication Note - Physician Communication Note Physician Communication Note: Please see above
--- NOTE | 2018-11-11 13:50 | CP.PCM.DIS ---
Provider - Provider Date of Admission: 11/07/18 18:32 Attending physician: Bernard Agudelo MD Consults: 11/08/18 08:46 Infectious Disease Consult Routine Comment: Consulting Provider: Susan Vivas Consulting Physician: Susan Vivas Reason for Consult: code sepsis 11/07, likely uti Time Spent in preparation of Discharge (in minutes): 180 Diagnosis - Discharge Diagnosis (1) Abdominal pain Status: Acute (2) Sepsis Status: Acute Hospital Course - Lab Results Lab Results: Micro Results 11/07/18 17:49 Blood Blood Culture - Preliminary NO GROWTH AFTER 3 DAYS 11/07/18 17:00 Blood Blood Culture - Preliminary NO GROWTH AFTER 3 DAYS 11/09/18 16:50 Urine Urine Culture - Final No Growth (<1,000 CFU/ML) 11/07/18 17:49 Urine,Clean Catch Urine Culture - Final 50-100,000 CFU/ML. MULTIPLE SPECIES. SUGGEST REPEAT SPECIMEN. Most Recent Lab Values WBC 5.1 K/uL (4.8-10.8) 11/11/18 08:05 RBC 3.60 Mil/uL (3.80-5.20) L 11/11/18 08:05 Hgb 8.9 g/dL (11.0-16.0) L 11/11/18 08:05 Hct 27.8 % (34.0-47.0) L 11/11/18 08:05 MCV 77.1 fL (81.0-99.0) L 11/11/18 08:05 MCH 24.7 pg (27.0-31.0) L 11/11/18 08:05 MCHC 32.0 g/dL (33.0-37.0) L 11/11/18 08:05 RDW 16.6 % (11.5-14.5) H 11/11/18 08:05 Plt Count 234 K/uL (130-400) 11/11/18 08:05 MPV 7.8 fL (7.2-11.7) 11/11/18 08:05 Neut % (Auto) 64.5 % (50.0-75.0) 11/11/18 08:05 Lymph % (Auto) 20.7 % (20.0-40.0) 11/11/18 08:05 [place] % (Auto) 11.6 % (0.0-10.0) H 11/11/18 08:05 Eos % (Auto) 2.2 % (0.0-4.0) 11/11/18 08:05 Baso % (Auto) 1.0 % (0.0-2.0) 11/11/18 08:05 Neut # (Auto) 3.3 K/uL (1.8-7.0) 11/11/18 08:05 Lymph # (Auto) 1.1 K/uL (1.0-4.3) 11/11/18 08:05 [place] # (Auto) 0.6 K/uL (0.0-0.8) 11/11/18 08:05 Eos # (Auto) 0.1 K/uL (0.0-0.7) 11/11/18 08:05 Baso # (Auto) 0.1 K/uL (0.0-0.2) 11/11/18 08:05 Neutrophils % (Manual) 87 % (50-75) H 11/09/18 06:57 Band Neutrophils % 4 % (0-2) H 11/08/18 08:10 Lymphocytes % (Manual) 8 % (20-40) L 11/09/18 06:57 Monocytes % (Manual) 5 % (0-10) 11/09/18 06:57 Platelet Estimate Normal (NORMAL) 11/09/18 06:57 Hypochromasia (manual) Slight 11/09/18 06:57 Poikilocytosis (manual Slight 11/08/18 08:10 Anisocytosis (manual) Slight 11/09/18 06:57 Target Cells Slight 11/08/18 08:10 Retic Count 1.1 % (0.5-1.5) 11/08/18 17:04 PT 13.5 SECONDS (9.7-12.2) H 11/07/18 17:06 INR 1.2 11/07/18 17:06 APTT 31 SECONDS (21-34) 11/07/18 17:06 pO2 58 mm/Hg (30-55) H 11/07/18 22:48 VBG pH 7.46 (7.32-7.43) H 11/07/18 22:48 VBG pCO2 44 mmHg (40-60) 11/07/18 22:48 VBG HCO3 29.9 mmol/L 11/07/18 22:48 VBG Total CO2 32.7 mmol/L (22-28) H 11/07/18 22:48 VBG O2 Sat (Calc) 95.1 % (40-65) H 11/07/18 22:48 VBG Base Excess 6.6 mmol/L (0.0-2.0) H 11/07/18 22:48 VBG Potassium 4.0 mmol/L (3.6-5.2) 11/07/18 22:48 Sodium 149.0 mmol/l (132-148) H 11/07/18 22:48 Chloride 116.0 mmol/L (98-107) H 11/07/18 22:48 Glucose 113 mg/dl (65-105) H 11/07/18 22:48 Lactate 0.9 mmol/L (0.7-2.1) 11/07/18 22:48 Sodium 139 mmol/L (132-148) 11/11/18 08:05 Potassium 3.4 mmol/L (3.6-5.2) L 11/11/18 08:05 Chloride 109 mmol/L (98-107) H 11/11/18 08:05 Carbon Dioxide 24 mmol/L (22-30) 11/11/18 08:05 Anion Gap 10 (10-20) 11/11/18 08:05 BUN 7 mg/dL (7-17) 11/11/18 08:05 Creatinine 0.7 mg/dL (0.7-1.2) 11/11/18 08:05 Est GFR ( Amer) > 60 11/11/18 08:05 Est GFR (Non-Af Amer) > 60 11/11/18 08:05 POC Glucose (mg/dL) 131 mg/dL (65-110) H 11/11/18 11:25 Random Glucose 124 mg/dL (65-105) H D 11/11/18 08:05 Hemoglobin A1c 5.4 % (4.2-6.5) 11/08/18 17:04 Calcium 8.5 mg/dl (8.6-10.4) L 11/11/18 08:05 Phosphorus 2.7 mg/dL (2.5-4.5) 11/11/18 08:05 Magnesium 1.9 mg/dL (1.6-2.3) 11/11/18 08:05 Iron 17 ug/dL (37-170) L 11/08/18 16:57 TIBC 312 ug/dL (250-450) 11/08/18 16:57 % Saturation 5 (20-55) L 11/08/18 16:57 Ferritin 37.1 ng/mL 11/08/18 17:04 Total Bilirubin 0.7 mg/dL (0.2-1.3) 11/11/18 08:05 AST 18 U/L (14-36) 11/11/18 08:05 ALT 15 U/L (9-52) 11/11/18 08:05 Alkaline Phosphatase 59 U/L (38-126) 11/11/18 08:05 Total Creatine Kinase 31 U/L (30-135) 11/09/18 02:57 CK-MB (Mass) 1.19 ng/mL (0.0-3.38) 11/09/18 02:57 Troponin I < 0.0120 ng/mL (0.00-0.120) 11/09/18 02:57 Total Protein 6.4 g/dL (6.3-8.3) 11/11/18 08:05 Albumin 2.9 g/dL (3.5-5.0) L 11/11/18 08:05 Globulin 3.6 gm/dL (2.2-3.9) 11/11/18 08:05 Albumin/Globulin Ratio 0.8 (1.0-2.1) L 11/11/18 08:05 Vitamin B12 229 pg/mL (239-931) L 11/08/18 17:04 Folate 19.2 ng/mL 11/08/18 17:04 Procalcitonin 8.64 NG/ML (0.19-0.49) H 11/08/18 08:10 Venous Blood Potassium 4.0 mmol/L (3.6-5.2) 11/07/18 22:48 Urine Color Sadia (YELLOW) 11/07/18 17:49 Urine Clarity Hazy (Clear) 11/07/18 17:49 Urine pH 6.0 (5.0-8.0) 11/07/18 17:49 Ur Specific [place] 1.020 (1.003-1.030) 11/07/18 17:49 Urine Protein 1+ mg/dL (NEGATIVE) H 11/07/18 17:49 Urine Glucose (UA) Normal mg/dL (Normal) 11/07/18 17:49 Urine Ketones Negative mg/dL (NEGATIVE) 11/07/18 17:49 Urine Blood Negative (NEGATIVE) 11/07/18 17:49 Urine Nitrate Negative (NEGATIVE) 11/07/18 17:49 Urine Bilirubin Negative (NEGATIVE) 11/07/18 17:49 Urine Urobilinogen Normal mg/dL (0.2-1.0) 11/07/18 17:49 Ur Leukocyte Esterase Neg Kristel/uL (Negative) 11/07/18 17:49 Urine WBC (Auto) 30 /hpf (0-5) H 11/07/18 17:49 Urine RBC (Auto) 6 /hpf (0-3) H 11/07/18 17:49 Ur Squamous Epith Cells 9 /hpf (0-5) H 11/07/18 17:49 Urine Bacteria Many (<OCC) H 11/07/18 17:49 Vancomycin Trough 9.6 ug/mL (5.0-10.0) 11/10/18 14:00 Influenza Typ A,B (EIA) Negative for flu a/b (NEGATIVE) 11/07/18 16:38 Ur L.pneumophila Ag Negative (NEGATIVE) 11/08/18 16:58 Mycoplasma pneumon IgM Negative (NEGATIVE) 11/08/18 13:49 Ur Strep pneumoniae Ag Not detected (Not Detected) 11/08/18 20:51 - Hospital Course Hospital Course: On admission: Patient is a 68 year old female with history of rheumatoid arthritis, HTN, RA, gastritis who presents for diffuse body aches. She states her symptoms started with abdominal pain that she describes as severe this morning associated with 3 episodes of vomiting, containing food contents. She denies any blood or dark material in her vomitus. She states she then called her son who brought her seltzer water for her abdominal discomfort which helped with her abdominal pain. She states she has had normal stools, brown and soft, denies blood or tarry stools. She states she has felt warm and has had chills all over all day today. She states her entire body hurts, including her head, and her left shoulder. She states she has not been able to eat anything today because of her vomiting. She denies falling at home, she denies dizziness, chest pain, shortness of breath, palpitations. She states she does not currently have any abdominal pain or back pain. She states she has pain all over her leg and arms. She denies burning with urination or frequency, or bad odor. On hospitalization: Patient admitted for Code sepsis 2/2 UTI vs bacteremia vs cellulitis. Febrile and tachycardic, Initial lactate 3.7, trending now with repeat lactate 1.9, 3rd lactate 0.9. White count 12.5 with left shift. Tylenol 650 mg Q6 for fever, Blood cx, urine cx. U/A many bacteria +1 protein, NS IV fluids at 100 cc in ED. Zosyn IV Q6 Zosyn 1gm IV Q12. flu negative, CXR: unremarkable. Abd/pelvis CT without contrast: gallstone, small 3-4mm non obstructing left renal stone. atherosclerotic changes with mild aneurysmal dilatation of mid abdominal aorta (2.5cm). Patient noted to be hypokalemia, and hypomagnesemia - given KCL x1 and Mag sulfate x1. Left foot noticed to be erythematous on medial maleoulus on physical exam. XR L foot (11/10): Neuropathic Charcot foot, diffuse osteopenia, soft tissue swelling. patient noticed to be anemic with no symptoms. Iron studies: Fe 17 TIBC 312 %sat 5 Ferritin 37.1. holding off on supplementing Fe for now in light of acute bacterial infection. For history of HTN, patient received norvasc 10mg PO, vasotec 10 mg PO, metoprolol 50mg PO BID. continue to monitor BP. For history of RA, enbrel was not start since last dose was 11/06/18 and patient receives it once a week. methotrexate was held. Folic acid 1mg once a day continued. tylenol Q6 PRN for pain. For hx of asthma, duoneb Q6 PRN. ppx included SCDs, lovenox, pepcid. On day of discharge 10/12, patient was seen and examined at bedside with son, patient had no complaints, no abdominal pain, fever, chills, chest pain, sob, n/v/d/c. Patient was eating well, and out of bed with help of son, having regular BM and no urinary complaints or symptoms. On discharge: The following instructions should be provided to patient and her Son Waldo in written form upon discharge: 1). Schedule follow up with your Docket Specialist Dr. Waters 2). Schedule appointment with the [facility] located on [address] of [address] in [place], [place] by calling [phone] for an appointment to take place in the next 7 to 10 days to help coordinate your health care. You stated that you were looking for a new primary care physician and this clinic can provide primary care for you. 3). You will need to have Orthopedic follow up as an outpatient for further evaluation evaluation of your shoulders. Please obtain referral for an orthope dic physician from your Primary Care Provider. 4). You stated that you had enough of your home medications. Please continue them and make sure to take the Metoprolol 2 times a day instead of once a day. 5). Please take Iron supplementation which you can purchase without a prescription. You should take Ferrous Sulfate 325 mg 1 tablet by mouth once a day with breakfast. 6). Please take care and be well. This is a brief summary of patient course of hospitalization. For more information, please see patient's EMR - Date & Time of H&P Date of H&P: 11/07/18 Time of H&P: 22:15 Discharge Exam - Head Exam Head Exam: ATRAUMATIC, NORMAL INSPECTION, NORMOCEPHALIC - Eye Exam Eye Exam: EOMI, Normal appearance, PERRL - ENT Exam ENT Exam: Mucous Membranes Moist, Normal Exam - Neck Exam Neck exam: Full Rom - Respiratory Exam Respiratory Exam: Clear to PA & Lateral, NORMAL BREATHING PATTERN, UNREMARKABLE. absent: Rales, Rhonchi, Wheezes - Cardiovascular Exam Cardiovascular Exam: REGULAR RHYTHM, +S1, +S2 - GI/Abdominal Exam GI & Abdominal Exam: Normal Bowel Sounds, Soft, Unremarkable. absent: Tenderness - Extremities Exam Extremities exam: full ROM - Back Exam Back exam: FULL ROM - Neurological Exam Neurological exam: Alert, CN II-XII Intact, Oriented x3 - Psychiatric Exam Psychiatric exam: Normal Affect, Normal Mood - Skin Skin Exam: Dry, Intact, Normal Color, Warm Discharge Plan - Follow Up Plan Condition: GUARDED Disposition: HOME/ ROUTINE Instructions: Sepsis (DC) Additional Instructions: 1). Programe seguimiento con byrnes reumatlogo Dr. Waters. 2). Programe patricia sophia con el [facility] ubicado en el [address] del [address] en [place], [place] llamando al [phone] para patricia sophia que tendr lugar en los prximos 7 a 10 [place] para ayudar a coordinar byrnes atencin mdica . Usted declar que estaba buscando un nuevo mdico de atencin primaria y esta clnica puede brindarle atencin primaria. 3). Deber tener un seguimiento ortopdico ankur paciente ambulatorio para patricia evaluacin adicional de liz hombros. Obtenga la referencia para un mdico ortopdico de byrnes Proveedor de atencin primaria. 4). Usted declar que roxanne suficiente de liz medicamentos caseros. Continelos y asegrese de rashmi Metoprolol 2 veces al da en lugar de patricia vez al da. 5). Por favor, tome suplementos de constantino que puede comprar sin receta mdica. Debe rashmi Ferroso Sulfate 325 mg 1 comprimido por va oral patricia vez al da con el desayuno. 6). Por favor cuidate y estar iva. 1). Schedule follow up with your Docket Specialist Dr. Waters 2). Schedule appointment with the [facility] located on [address] of [address] in [place], [place] by calling [phone] for an appointment to take place in the next 7 to 10 days to help coordinate your health care. You stated that you were looking for a new primary care physician and this clinic can provide primary care for you. 3). You will need to have Orthopedic follow up as an outpatient for further evaluation evaluation of your shoulders. Please obtain referral for an orthopedic physician from your Primary Care Provider. 4). You stated that you had enough of your home medications. Please continue them and make sure to take the Metoprolol 2 times a day instead of once a day. 5). Please take Iron supplementation which you can purchase without a prescription. You should take Ferrous Sulfate 325 mg 1 tablet by mouth once a day with breakfast. 6). Please take care and be well.
== END 2018-11-11 14:49 | disposition home or self-care (01) | DRG 872 ==
LOC: C.ER 15:57 → C.5S 18:32
PROVIDERS: ADMIT Family Medicine; ATTEND Family Medicine
DX: A41.9 Sepsis, unspecified organism (principal); N39.0 Urinary tract infection, site not specified; D64.9 Anemia, unspecified; M14.679 Charcot's joint, unspecified ankle and foot; M85.80 Other specified disorders of bone density and structure, unspecified site; E83.42 Hypomagnesemia; E87.6 Hypokalemia; I10 Essential (primary) hypertension; J45.909 Unspecified asthma, uncomplicated; K29.70 Gastritis, unspecified, without bleeding; M06.9 Rheumatoid arthritis, unspecified; N20.0 Calculus of kidney; Z79.899 Other long term (current) drug therapy; Z87.01 Personal history of pneumonia (recurrent); Z87.442 Personal history of urinary calculi; Z87.891 Personal history of nicotine dependence; Z96.653 Presence of artificial knee joint, bilateral

== ENCOUNTER 2018-12-01 12:04 | Outpatient (CLI) | payer MEDICARE, OTHER | END 2018-12-01 12:05 | disposition home or self-care (01) | LOC: C.MAMMO 12:04 | DX: R92.2 Inconclusive mammogram (principal) ==